=== PATIENT | female | born 1970 | race African-American/Black ===

== ENCOUNTER 2022-04-28 07:46 | Emergency (ER) | payer MEDICARE, MEDICAID ==
[~2022-04-28] VITALS: Ht 160 cm; Wt 160.0 kg
[2022-04-28] MEDS ORDERED: morphine INJ 10 MG/ML 1ML (SYR OR VIAL) IV STA (07:55)
--- NOTE | 2022-04-28 08:05 | ED Chest Pain ---
General Chief Complaint: Chest Pain Stated Complaint: CP Source: patient, EMS Exam Limitations: no limitations History of Present Illness Date Seen by Provider: Apr 28, 2022 Time Seen by Provider: 07:48 Initial Comments Patient presents ER by EMS from [facility] where she was performing hemodialysis with chief complaint of chest pain starting about 7:00 this morning. She got about 45 minutes of her dialysis done. She typically takes dialysis on Sunday. She has a history of diabetes and her blood sugar was 105 this morning. She does not have a history of heart disease or chest pains like this. She is also having some tenderness in her right upper quadrant abdomen which she has had for several months. She has had it looked at by the nurses at [facility] and they told her it was probably gas pain and she never had it followed up. She had her gallbladder out surgically. She is not having any nausea vomiting fever chills cough shortness of air. No increased swelling in her hands or feet. She does not know who her primary care provider is but Dr. Call is her middle card tender. She does not follow with a mortgage loan assistant. She is not a smoker or drinker nor does she use recreational drugs. No history of pancreatitis. She has had endoscopy years ago and told everything was okay and her stomach. No history of acid reflux. She does have hypertension, diabetes, hyperlipidemia. No personal history of coronary disease. Chest pain is not made worse by deep inspiration but is reproducible if pushing in the center of her chest. She is on 3 L of oxygen by nasal cannula which she typically takes daily during her dialysis. She has a IVC filter in place and IUD. The dialysis nurse relates that they did give her back her blood and a liter of fluids and would be happy to take her back to complete dialysis after her work- up if she is cleared to leave. Allergies and Home Medications Allergies Coded Allergies: san (Verified Allergy, Unknown, 04/28/22) shrimp (Verified Allergy, Unknown, angioedema, 04/28/22) watermelon (Verified Allergy, Unknown, 04/28/22) Uncoded Allergies: CASHEW (Allergy, Unknown, 04/28/22) Patient Home Medication List Home Medication List Reviewed: Yes Review of Systems Review of Systems Constitutional: No chills, No diaphoresis EENTM: No Blurred Vision, No Double Vision Respiratory: Denies Cough, Denies Shortness of Air Cardiovascular: Chest Pain; Denies Edema, Denies Lightheadedness Gastrointestinal: See HPI, Abdominal Pain; Denies Constipated, Denies Nausea, Denies Vomiting Genitourinary: Denies Discharge, Denies Drainage Musculoskeletal: No back pain, No joint pain Skin: No pruritus, No rash Psychiatric/Neurological: Denies Headache, Denies Numbness All Other Systems Reviewed Negative Unless Noted: Yes Past Htnlxnr-Rdrrfz-Zrzzyl Hx Patient Social History Tobacco Use?: No Use of E-Cig and/or Vaping dev: No Substance use?: No Alcohol Use?: No Physical Exam Vital Signs Vital Signs - First Documented 04/28/22 07:46 Temp 35.6 Pulse 68 Resp 20 B/P (MAP) 119/90 (100) Pulse Ox 98 O2 Delivery Room Air Capillary Refill : Height, Weight, BMI Height: '" Weight: lbs. oz. kg; BMI Method: General Appearance: No Apparent Distress, Chronically ill, Obese HEENT: PERRL/EOMI, Pharynx Normal, Moist Mucous Membranes Neck: Full Range of Motion, Normal Inspection, Non Tender Respiratory: Lungs Clear, Normal Breath Sounds, No Accessory Muscle Use, No Respiratory Distress Cardiovascular: Regular Rate, Rhythm, No Edema, Normal Peripheral Pulses Gastrointestinal: Normal Bowel Sounds, No Organomegaly, Soft, Tenderness (Right upper quadrant epigastric region) Extremity: Normal Capillary Refill, Normal Inspection, Normal Range of Motion, Non Tender, No Pedal Edema Neurologic/Psychiatric: Alert, Oriented x3, No Motor/Sensory Deficits, Normal Mood/Affect Skin: Normal Color, Warm/Dry Progress/Results/Core Measures Results/Orders Lab Results Laboratory Tests Test 04/28/22 07:58 04/28/22 11:02 Range/Units White Blood Count 5.9 4.3-11.0 10^3/uL Red Blood Count 3.74 L 3.80-5.11 10^6/uL Hemoglobin 10.5 L 11.5-16.0 g/dL Hematocrit 32 L 35-52 % Mean Corpuscular Volume 86 80-99 fL Mean Corpuscular Hemoglobin 28 25-34 pg Mean Corpuscular Hemoglobin Concent 33 32-36 g/dL Red Cell Distribution Width 16.1 H 10.0-14.5 % Platelet Count 208 130-400 10^3/uL Mean Platelet Volume 10.5 9.0-12.2 fL Immature Granulocyte % (Auto) 1 % Neutrophils (%) (Auto) 66 42-75 % Lymphocytes (%) (Auto) 20 12-44 % Monocytes (%) (Auto) 9 0-12 % Eosinophils (%) (Auto) 5 0-10 % Basophils (%) (Auto) 0 0-10 % Neutrophils # (Auto) 3.9 1.8-7.8 10^3/uL Lymphocytes # (Auto) 1.2 1.0-4.0 10^3/uL Monocytes # (Auto) 0.5 0.0-1.0 10^3/uL Eosinophils # (Auto) 0.3 0.0-0.3 10^3/uL Basophils # (Auto) 0.0 0.0-0.1 10^3/uL Immature Granulocyte # (Auto) 0.0 0.0-0.1 10^3/uL Prothrombin Time 23.5 H 12.2-14.7 SEC INR Comment 2.0 H 0.8-1.4 Activated Partial Thromboplast Time 166 *H 24-35 SEC Sodium Level 134 L 135-145 MMOL/L Potassium Level 4.0 3.6-5.0 MMOL/L Chloride Level 94 L 98-107 MMOL/L Carbon Dioxide Level 28 21-32 MMOL/L Anion Gap 12 5-14 MMOL/L Blood Urea Nitrogen 35 H 7-18 MG/DL Creatinine 7.49 H 0.60-1.30 MG/DL Estimat Glomerular Filtration Rate 6 BUN/Creatinine Ratio 5 Glucose Level 180 H 70-105 MG/DL Calcium Level 9.1 8.5-10.1 MG/DL Corrected Calcium 9.3 8.5-10.1 MG/DL Magnesium Level 2.3 1.6-2.4 MG/DL Total Bilirubin 0.8 0.1-1.0 MG/DL Aspartate Amino Transf (AST/SGOT) 10 5-34 U/L Alanine Aminotransferase (ALT/SGPT) 14 0-55 U/L Alkaline Phosphatase 126 40-136 U/L Myoglobin 386.0 H 10.0-92.0 NG/ML Troponin I < 0.028 < 0.028 <0.028 NG/ML Total Protein 7.4 6.4-8.2 GM/DL Albumin 3.7 3.2-4.5 GM/DL Lipase 83 H 8-78 U/L My Orders Orders - JEANA,DENNISE J Ekg Tracing (04/28/22 07:49) Cbc With Automated Diff (04/28/22 07:55) Magnesium (04/28/22 07:55) Chest 1 View, Ap/Pa Only (04/28/22 07:55) Comprehensive Metabolic Panel (04/28/22 07:55) Myoglobin Serum (04/28/22 07:55) Protime With Inr (04/28/22 07:55) Partial Thromboplastin Time (04/28/22 07:55) O2 (04/28/22 07:55) Monitor-Rhythm Ecg Trace Only (04/28/22 07:55) Lipid Panel (04/29/22 06:00) Ed Iv/Invasive Line Start (04/28/22 07:55) Troponin I Pearl (04/28/22 07:55) Morphine Injection (Morphine Injection (04/28/22 07:55) Ct Abdomen/Pelvis Wo (04/28/22 07:55) Lipase (04/28/22 07:55) Troponin I [place] (04/28/22 11:00) Lidocaine 2% Viscous 15 Ml (Xylocaine Vi (04/28/22 09:30) Famotidine Tablet (Pepcid Tablet) (04/28/22 09:27) Antacid Suspension (Mylanta Suspension (04/28/22 09:30) General/Regular (04/28/22 Lunch) Medications Given in ED Current Medications Medications Dose Ordered Sig/Ana Route Start Time Stop Time Status Last Admin Dose Admin Al Hydrox/Mg Hydrox/Simethicone 30 ml ONCE ONCE PO 04/28/22 09:30 04/28/22 09:31 DC 04/28/22 09:35 30 ML Lidocaine HCl 15 ml ONCE ONCE PO 04/28/22 09:30 04/28/22 09:31 DC 04/28/22 09:35 15 ML Vital Signs/I&O 04/28/22 07:46 Temp 35.6 Pulse 68 Resp 20 B/P (MAP) 119/90 (100) Pulse Ox 98 O2 Delivery Room Air Progress Progress Note #1: Time: 08:05 Progress Note She did not get nitroglycerin by EMS because she did not have an IV. Her blood pressure is on the softer side 119/90 so we will hold off on nitroglycerin. We are going to try a GI cocktail and 2 mg of morphine. Continue oxygen. Her pain is reproducible but with her history of dialysis, hypertension, hyperlipidemia, diabetes if she has a negative initial troponin then she would have 3 points HEART Pathway Score. Low risk; 0.9-1.7% 30-day MACE. Repeat troponin at 3 hours and if negative, discharge home with outpatient follow-up. Progress Note #2: Time: 09:21 Progress Note Bit of a pulmonary edema probably because Franca gave her back some fluids and have not completed her dialysis. Plan to do a delta troponin at 11:00. If it is still okay then we will send her back to finish her dialysis. This should sort out her fluid overload status. She is pain-free at the moment. She still having a little bit of the chronic pain in her sides organ to try some Maalox and see if that helps. She is okay with the plan and if the delta troponin is o leslie we will have her follow-up in the next week with cardiology. We took her off her oxygen and her sats remained 98 to 100% with no labored breathing. She only wears CPAP at night to sleep Initial ECG Impression Date: Apr 28, 2022 Initial ECG Impression Time: 07:54 Initial ECG Rate: 69 Initial ECG Rhythm: Normal Sinus Initial ECG Intervals: Normal Initial ECG Impression: Normal Initial ECG Comparisson: No Previous ECG Available Comment Normal sinus rhythm without clinically relevant ST elevation or depression. Diagnostic Imaging Diagonstic Imaging: Xray Plain Films/CT/US/NM/MRI: chest Comments [facility] [place], [place] NAME: MINAD WHITE [facility] REC#: [id number] PT STATUS: REG ER : 1970 PHYSICIAN: DENNISE HILLS MD ADMIT DATE: 04/28/22/ER Draft Date of Exam:04/28/22 CHEST 1 VIEW, AP/PA ONLY EXAMINATION: Chest 1 view HISTORY: Chest pain. COMPARISON: None available. FINDINGS: The lung volumes are normal. No focal consolidation is seen. No large pleural effusion or pneumothorax is seen. The cardiomediastinal silhouette is enlarged with prominence of the central pulmonary vasculature.. No acute osseous abnormality is seen. IMPRESSION: 1. Cardiomegaly with central pulmonary vascular congestion. Dictated on workstation # [id number] Dict: 04/28/22 0907 Trans: 04/28/22908 CV [id number] Interpreted by: DEMETRIO DUQUE DO Electronically signed by: Reviewed: Reviewed by Me Diagonstic Imaging: CT Plain Films/CT/US/NM/MRI: abdomen, pelvis Comments [facility] [place] [place] NAME: MINDA WHITE [employer] REC#: [id number] PT STATUS: REG ER : 1970 PHYSICIAN: DENNISE HILLS MD ADMIT DATE: 04/28/22/ER Signed Date of Exam:04/28/22 CT ABDOMEN/PELVIS WO PROCEDURE: CT abdomen and pelvis without contrast. TECHNIQUE: Multiple contiguous axial images were obtained through the abdomen and pelvis without the use of intravenous contrast. Auto Exposure Controls were utilized during the CT exam to meet ALARA standards for radiation dose reduction. INDICATION: Right upper quadrant pain. Chest pain. History of dialysis. COMPARISON: None. FINDINGS: The heart is prominent. Patchy bibasilar opacities are present. The kidneys have an atrophic appearance. No evidence of hydronephrosis. No renal mass. The urinary bladder is nondistended. The liver, spleen, pancreas, and adrenal glands have a normal appearance. The gallbladder is surgically absent. There is no pathologically enlarged mesenteric or retroperitoneal adenopathy. The bowel loops are nondilated. The appendix is visualized in the right lower quadrant and has a normal appearance. There is no free fluid or free air. No acute osseous abnormalities. IVC filter is in place. Ureters and bladder are normal. An IUD is in place. There is no free air, loculated collection, or adenopathy in the pelvis. IMPRESSION: 1. Patchy bibasilar opacities, which may represent atelectasis or infection. No focal consolidations. 2. Cardiomegaly. 3. Atrophic appearance of the kidneys. No evidence of hydronephrosis or renal mass. Dictated by: Dictated on workstation # [id number] Dict: 04/28/22 0852 Trans: 04/28/2203 [facility] [id number] Interpreted by: DEMETRIO DUQUE DO Electronically signed by: DEMETRIO DUQUE DO 04/28/2203 Reviewed: Reviewed by Me Departure Impression Primary Impression: Chest pain Qualified Codes: R07.9 - Chest pain, unspecified Disposition: HOME, SELF-CARE Condition: Stable Departure-Patient Inst. Decision time for Depature: 11:51 Referrals: RAMILA BOWEN JR, MD Patient Instructions: Chest Pain (DC) Add. Discharge Instructions: Plan to follow-up with dialysis as soon as you leave the ER. Follow-up with Dr. Bowen, cardiology on 05/02/2022 at 2:00 in the afternoon. Return to the ER if you have persistent, severe pain in the chest, shortness of air or other worrisome symptoms. All discharge instructions reviewed with patient and/or family. Voiced understanding. Copy Copies To 1: RAMILA BOWEN JR, MD WELLER, TITUS J Apr 28, 2022 08:05
[2022-04-28 08:12] LABS: BASOPHILS % (AUTO) 0 % (0-10); EOSINOPHILS # (AUTO) 0.3 10^3/uL (0.0-0.3); EOSINOPHILS % (AUTO) 5 % (0-10); HEMATOCRIT 32 % (35-52); HEMOGLOBIN 10.5 g/dL (11.5-16.0); LYMPHOCYTES # (AUTO) 1.2 10^3/uL (1.0-4.0); LYMPHOCYTES % (AUTO) 20 % (12-44); MEAN CORPUSCULAR HEMOGLOBIN 28 pg (25-34); MEAN CORPUSCULAR HGB CONC 33 g/dL (32-36); MEAN CORPUSCULAR VOLUME 86 fL (80-99); MEAN PLATELET VOLUME 10.5 fL (9.0-12.2); MONOCYTES # (AUTO) 0.5 10^3/uL (0.0-1.0); MONOCYTES % (AUTO) 9 % (0-12); NEUTROPHILS # (AUTO) 3.9 10^3/uL (1.8-7.8); NEUTROPHILS % (AUTO) 66 % (42-75); PLATELET COUNT 208 10^3/uL (130-400); WHITE BLOOD COUNT 5.9 10^3/uL (4.3-11.0)
[2022-04-28 08:27] LABS: ALBUMIN 3.7 GM/DL (3.2-4.5)
[2022-04-28 08:29] LABS: CALCIUM 9.1 MG/DL (8.5-10.1)
[2022-04-28 08:30] LABS: TOTAL PROTEIN 7.4 GM/DL (6.4-8.2)
[2022-04-28 08:32] LABS: BILIRUBIN,TOTAL 0.8 MG/DL (0.1-1.0)
[2022-04-28 08:34] LABS: CREATININE SERUM 7.49 MG/DL (0.60-1.30)
[2022-04-28 08:35] LABS: LIPASE 83 U/L (8-78)
[2022-04-28 08:37] LABS: MAGNESIUM 2.3 MG/DL (1.6-2.4)
[2022-04-28 08:59] LABS: PROTHROMBIN TIME PATIENT 23.5 SEC (12.2-14.7)
--- NOTE | 2022-04-28 09:03 | Diagnostic Imaging Report ---
PROCEDURE: CT abdomen and pelvis without contrast. TECHNIQUE: Multiple contiguous axial images were obtained through the abdomen and pelvis without the use of intravenous contrast. Auto Exposure Controls were utilized during the CT exam to meet ALARA standards for radiation dose reduction. INDICATION: Right upper quadrant pain. Chest pain. History of dialysis. COMPARISON: None. FINDINGS: The heart is prominent. Patchy bibasilar opacities are present. The kidneys have an atrophic appearance. No evidence of hydronephrosis. No renal mass. The urinary bladder is nondistended. The liver, spleen, pancreas, and adrenal glands have a normal appearance. The gallbladder is surgically absent. There is no pathologically enlarged mesenteric or retroperitoneal adenopathy. The bowel loops are nondilated. The appendix is visualized in the right lower quadrant and has a normal appearance. There is no free fluid or free air. No acute osseous abnormalities. IVC filter is in place. Ureters and bladder are normal. An IUD is in place. There is no free air, loculated collection, or adenopathy in the pelvis. IMPRESSION: 1. Patchy bibasilar opacities, which may represent atelectasis or infection. No focal consolidations. 2. Cardiomegaly. 3. Atrophic appearance of the kidneys. No evidence of hydronephrosis or renal mass. Dictated by: Dictated on workstation # [id number]
--- NOTE | 2022-04-28 09:10 | Diagnostic Imaging Report ---
EXAMINATION: Chest 1 view HISTORY: Chest pain. COMPARISON: None available. FINDINGS: The lung volumes are normal. No focal consolidation is seen. No large pleural effusion or pneumothorax is seen. The cardiomediastinal silhouette is enlarged with prominence of the central pulmonary vasculature.. No acute osseous abnormality is seen. IMPRESSION: 1. Cardiomegaly with central pulmonary vascular congestion. Dictated by: Dictated on workstation # [id number]
[2022-04-28] MEDS ORDERED: FAMOTIDINE 20 MG (PEPCID) TABLET PO STA (09:27)
[2022-04-28] MEDS ORDERED: ANTACID SUSP 30 ML UDC (MYLANTA) PO ONE (09:30)
[2022-04-28] MEDS ORDERED: LIDOCAINE 2% VISCOUS 15 ML UDC PO ONE (09:30)
[2022-04-28 13:48] VITALS: BP 121/66
== END 2022-04-28 13:48 | disposition home or self-care (01) ==
LOC: ER 07:48
DX: R07.89 Other chest pain (principal); R10.11 Right upper quadrant pain; R10.13 Epigastric pain; E66.9 Obesity, unspecified; Z97.5 Presence of (intrauterine) contraceptive device; Z99.2 Dependence on renal dialysis
CPT/HCPCS: 36415; 71045; 74176; 80053; 83690; 83735; 83874; 84484; 85025; 85610; 85730; 93005; 93041; 96374